=== PATIENT | female | born 1970 | race Caucasian/White ===

== ENCOUNTER → 2016-10-24 | Outpatient (CLI) | payer OTHER ==
--- NOTE | 2016-10-26 09:41 | MM ---
Reason for exam: screening (asymptomatic). Last mammogram was performed 1 year and 2 months ago. History: Patient is postmenopausal and has history of other cancer at age 41. Family history of breast cancer in 2 paternal aunts. Chemotherapy. Physical Findings: A clinical breast exam by your physician is recommended on an annual basis and results should be correlated with mammographic findings. MG Screening Mammo w CAD Bilateral CC and MLO view(s) were taken. Prior study comparison: August 13, 2015, left breast MG 3d work up w/cad LT. August 10, 2015, bilateral MG screening mammo w CAD. There are scattered fibroglandular densities. There is no discrete abnormality. No significant changes when compared with prior studies. ASSESSMENT: Negative, BI-RAD 1 RECOMMENDATION: Routine screening mammogram of both breasts in 1 year.
== END | disposition home or self-care (01) ==
LOC: RADMAMWWP 07:14
PROVIDERS: ATTEND Internal Medicine
DX: Z12.31 Encounter for screening mammogram for malignant neoplasm of breast (principal)

== ENCOUNTER → 2018-04-17 | Outpatient (CLI) | payer OTHER ==
--- NOTE | 2018-04-17 14:05 | MM ---
Reason for exam: screening (asymptomatic). Last mammogram was performed 1 year and 6 months ago. History: Patient is postmenopausal and has history of other cancer at age 41. Family history of breast cancer in 2 paternal aunts. Chemotherapy. Physical Findings: A clinical breast exam by your physician is recommended on an annual basis and results should be correlated with mammographic findings. MG Screening Mammo w CAD Bilateral CC and MLO view(s) were taken. Prior study comparison: October 24, 2016, bilateral MG screening mammo w CAD. August 13, 2015, left breast MG 3d work up w/cad LT. The breast tissue is heterogeneously dense. This may lower the sensitivity of mammography. Finding: There are typically benign round, grouped/clustered calcifications in the anterior position of the right breast. There is no discrete abnormality. ASSESSMENT: Benign, BI-RAD 2 RECOMMENDATION: Routine screening mammogram of both breasts in 1 year.
== END | disposition home or self-care (01) ==
LOC: RADMAMWWP 06:58
PROVIDERS: ATTEND Obstetrics & Gynecology
DX: Z12.31 Encounter for screening mammogram for malignant neoplasm of breast (principal)
CPT/HCPCS: 77067

== ENCOUNTER → 2018-09-28 | Outpatient (CLI) | payer OTHER ==
--- NOTE | 2018-10-01 11:46 | BD ---
EXAMINATION TYPE: Axial Bone Density DATE OF EXAM: 09/28/2018 COMPARISON: DEXA bone scan 2014 CLINICAL HISTORY: Disorder of bone density per order. Height: 71 Weight: 244.0 FRAX RISK QUESTIONS: Alcohol (3 or more units per day): no Family History (Parent hip fracture): no Glucocorticoids (More than 3mos): no (Ex: prednisone, prednisolone, methylprednisolone, dexamethasone, and hydrocortisone). History of Fracture in Adulthood: no Secondary Osteoporosis: 1. Type 1 Diabetes: no 2. Hyperthyroidism: no 3. Menopause before 45: yes 4. Malnutrition: no 5. Chronic liver disease: no Rheumatoid Arthritis: no Current Tobacco Use: no RISK FACTORS HISTORY OF: Family History of Osteoporosis: no Active: yes Diet low in dairy products/other sources of calcium: no Postmenopausal woman: age 41 Lost more than 2 inches in height since high school: no MEDICATIONS: vit d3 Thyroid Medications: synthroid How Lon years Additional History: EXAM MEASUREMENTS: Bone mineral densitometry was performed using the [employer] System. Bone mineral density as measured about the Lumbar spine is: ----- L1-L4(G/cm2): 1.067 T Score Values are as follows: ----- L2: -1.0 ----- L3: -0.9 ----- L4: -0.9 ----- L1-L4: -0.9 Bone mineral density has: increased 0.3 % since study of: 08.10.2015 Bone mineral density about the R hip (g/cm2): 0.932 Bone mineral density about the L hip (g/cm2): 0.999 T Score values are as follows: -----R Neck: -0.8 -----L Neck: -0.3 -----R Total: -0.6 -----L Total: -0.1 Bone mineral density has: decreased -0.3 % since study of: 08.10.2015 IMPRESSION: Normal (Values between +1 and -1 indicate normal bone mass) overall on current study. Bone density fa irly stable from prior. Consider repeating this study in 5 years or sooner if there is some new clin ical indication. NOTE: T-SCORE=SD OF THE YOUNG ADULT MEAN.
== END | disposition home or self-care (01) ==
LOC: RADBDWWP 16:21
PROVIDERS: ATTEND Internal Medicine
DX: M85.9 Disorder of bone density and structure, unspecified (principal)
CPT/HCPCS: 77080

== ENCOUNTER → 2018-11-02 | Day surgery (SDC) | payer OTHER ==
[2018-11-01 08:47] VITALS: BMI 32.1
[~2018-11-02] MED LIST: LACTATED RINGERS 1,000 ML IV SCH; LIDOCAINE 1% 20 ML VIAL (10MG/ML) FOR IV START INTRADERMA ONE; PROPOFOL 10 MG/ML 20 ML VIAL IV ONE
[2018-11-02 10:09] VITALS: RESP 16; TEMP 98.1
--- NOTE | 2018-11-02 11:23 | P.PCN ---
Date of Procedure: 11/02/18 Procedure(s) Performed: BRIEF HISTORY: Patient is a 48-year-old pleasant white female, scheduled for an elective colonoscopy as a part of screening for colorectal neoplasia. PROCEDURE PERFORMED: Colonoscopy. PREOPERATIVE DIAGNOSIS: Screening for colon cancer. IV sedation per Anesthesia. PROCEDURE: After informed consent was obtained, the patient, was brought into the endoscopy unit. IV sedation was administered by Anesthesia under continuous monitoring. Digital rectal examination was normal. Initially the Olympus CF- 160 flexible video colonoscope was then inserted in the rectum, gradually advanced into the cecum without any difficulty. Careful examination was performed as the scope was gradually being withdrawn. Ileocecal valve and the appendiceal orifice were visualized and appeared normal. Prep was excellent. Mucosa of the cecum, ascending colon, transverse colon, descending colon, sigmoid colon, and rectum appeared normal. Retroflexion was performed in the rectum and no lesions were seen. The patient tolerated the procedure well. IMPRESSION: Normal-appearing colon from rectum to cecum with no evidence of colorectal neoplasia. RECOMMENDATIONS: Findings of this examination were discussed with the patient as well as a family. She was advised to have a repeat screening colonoscopy in 10 years.
[2018-11-02 11:37] VITALS: BP 106/66; PULSE 68
== END | disposition home or self-care (01) ==
LOC: ORWHC2ENDO 09:28
PROVIDERS: ATTEND Internal Medicine Gastroenterology
DX: Z12.11 Encounter for screening for malignant neoplasm of colon (principal); E07.9 Disorder of thyroid, unspecified; Z79.890 Hormone replacement therapy; Z85.72 Personal history of non-Hodgkin lymphomas; Z90.710 Acquired absence of both cervix and uterus
CPT/HCPCS: J2704; G0121; 45378

== ENCOUNTER → 2019-12-05 | Outpatient (CLI) | payer OTHER ==
--- NOTE | 2019-12-06 14:14 | MM ---
Reason for exam: screening (asymptomatic). Last mammogram was performed 1 year and 8 months ago. History: Patient is postmenopausal and has history of other cancer at age 41. Family history of breast cancer in 2 paternal aunts. Chemotherapy. Physical Findings: A clinical breast exam by your physician is recommended on an annual basis and results should be correlated with mammographic findings. MG Screening Mammo w CAD Bilateral CC and MLO view(s) were taken. XCCM view(s) were taken of the left breast. Prior study comparison: April 17, 2018, bilateral MG screening mammo w CAD. October 24, 2016, bilateral MG screening mammo w CAD. The breast tissue is heterogeneously dense. This may lower the sensitivity of mammography. There is a stable right lateral round asymmetry. Benign appearing bilateral calcifications. No suspicious abnormality. ASSESSMENT: Benign, BI-RAD 2 RECOMMENDATION: Routine screening mammogram of both breasts in 1 year.
== END | disposition home or self-care (01) ==
LOC: RADMAMWWP 08:02
PROVIDERS: ATTEND Internal Medicine
DX: Z12.31 Encounter for screening mammogram for malignant neoplasm of breast (principal)
CPT/HCPCS: 77067

== ENCOUNTER → 2021-12-15 | Outpatient (CLI) | payer OTHER ==
--- NOTE | 2021-12-15 10:41 | MM ---
Reason for exam: additional evaluation requested from prior study. Last mammogram was performed 2 years ago. History: Patient is postmenopausal and has history of other cancer at age 41. Family history of breast cancer in 2 paternal aunts. Chemotherapy. Physical Findings: A clinical breast exam by your physician is recommended on an annual basis and results should be correlated with mammographic findings. MG 3D Diag Mammo W/Cad KB Bilateral CC and MLO view(s) were taken. Prior study comparison: December 05, 2019, bilateral MG screening mammo w CAD. April 17, 2018, bilateral MG screening mammo w CAD. The breast tissue is heterogeneously dense. This may lower the sensitivity of mammography. There are two indeterminate groups of microcalcifications within each breast requiring tissue biopsy. These results were verbally communicated with the patient and result sheet given to the patient on 12/15/21. ASSESSMENT: Suspicious, BI-RAD 4 RECOMMENDATION: Stereotactic core biopsy of both breasts. (right breast x 2, left breast x 2) Manage patient on a clinical basis. Patient request to speak with oncologist SHANTEL Albert before scheduling biopsy/surgical consult. PRELIMINARY REPORT CALLED AND FAXED TO DR. OSBORN ON 12/15/21.
--- NOTE | 2021-12-15 10:43 | USB ---
Reason for exam: clinical finding. History: Patient is postmenopausal and has history of other cancer at age 41. Family history of breast cancer in 2 paternal aunts. Chemotherapy. Physical Findings: A clinical breast exam by your physician is recommended on an annual basis and results should be correlated with mammographic findings. US Breast Axilla LT Left breast axilla ultrasound demonstrates a 1.4 x 0.6 x 0.6cm probable lipoma at the axilla. These results were verbally communicated with the patient and result sheet given to the patient on 12/15/21. ASSESSMENT: Benign, BI-RAD 2 RECOMMENDATION: Stereotactic core biopsy of both breasts. Bilateral calcifications. (right breast x 2, left breast x 2) Manage patient on a clinical basis. Patient request to speak with oncologist SHANTEL Albert before scheduling biopsy/surgical consult. PRELIMINARY REPORT CALLED AND FAXED TO DR. OSBORN ON 12/15/21.
== END | disposition home or self-care (01) ==
LOC: RADMAMWWP 08:49
PROVIDERS: ATTEND Internal Medicine
DX: R92.8 Other abnormal and inconclusive findings on diagnostic imaging of breast (principal); Z78.0 Asymptomatic menopausal state; Z80.3 Family history of malignant neoplasm of breast
CPT/HCPCS: 77062; 77066

== ENCOUNTER → 2021-12-17 | Outpatient (CLI) | payer OTHER ==
--- NOTE | 2021-12-18 12:45 | ECHOF ---
Referral Reason:Z82.49 FAM HX ISCHEMIC HEART DISEASE MEASUREMENTS -------- HEIGHT: 180.3 cm WEIGHT: 108.9 kg BP: 131/79 RVIDd: 2.6 cm (< 3.3) IVSd: 1.1 cm (0.6 - 1.1) LVIDd: 4.3 cm (3.9 - 5.3) LVPWd: 1.0 cm (0.6 - 1.1) IVSs: 1.8 cm LVIDs: 3.0 cm LVPWs: 1.4 cm LA Diam: 3.4 cm (2.7 - 3.8) Ao Diam: 3.2 cm (2.0 - 3.7) AV Cusp: 2.3 cm (1.5 - 2.6) MV EXCURSION: 21.432 mm (> 18.000) MV EF SLOPE: 117 mm/s (70 - 150) EPSS: 0.7 cm MV E Steven: 0.78 m/s MV DecT: 206 ms MV A Steven: 0.70 m/s MV E/A Ratio: 1.11 RAP: 5.00 mmHg RVSP: 25.10 mmHg FINDINGS -------- Sinus rhythm. This was a technically good study. The left ventricular size is normal. Left ventricular wall thickness is normal. Overall left vent ricular systolic function is normal with, an EF between 55 - 60 %. The right ventricle is normal in size. Normal LA size by volume 22+/-6 ml/m2. The right atrium is normal in size. Interatrial and interventricular septum intact. The aortic valve is trileaflet, and appears structurally normal. No aortic stenosis or regurgitation. The mitral valve is normal. Mild tricuspid regurgitation present. Right ventricular systolic pressure is normal at < 35 mmHg. The pulmonic valve is normal. The aortic root size is normal. Normal inferior vena cava with normal inspiratory collapse consistent with estimated right atrial pre ssure of 5 mmHg. There is no pericardial effusion. CONCLUSIONS -------- 1. The left ventricular size is normal. 2. Left ventricular wall thickness is normal. 3. Overall left ventricular systolic function is normal with, an EF between 55 - 60 %. 4. Mild tricuspid regurgitation present. 5. There is no pericardial effusion. [employer]ER: Josefina Whitehead [facility]
== END | disposition home or self-care (01) ==
LOC: RADECHMAIN 13:41
PROVIDERS: ATTEND Internal Medicine
DX: I07.1 Rheumatic tricuspid insufficiency (principal); Z82.49 Family history of ischemic heart disease and other diseases of the circulatory system
CPT/HCPCS: 93306

== ENCOUNTER → 2022-01-07 | Day surgery (SDC) | payer OTHER ==
[2022-01-07 07:31] VITALS: RESP 16
[2022-01-07 10:22] VITALS: BP 106/67; PULSE 65; TEMP 98.1
--- NOTE | 2022-01-07 16:45 | MM ---
EXAMINATION TYPE: MG stereo VAD BX LT DATE OF EXAM: 01/07/2022 COMPARISON: 12/16/2019 2 mm of the CLINICAL HISTORY: Abnormal mammogram bilateral breasts TECHNIQUE: Stereotactic guided core biopsy of left breast. Due to limitation of medication dose of l idocaine, the right breast was not performed at this time. FINDINGS: The procedure of stereotactic guided core biopsy was explained to the patient. Benefits, a lternatives, and risks were discussed. An informed consent was then obtained. Timeout was performed. Mammographic images are reviewed. Inferior approach was selected. The posterior 6:00 posterior positi on calcifications are localized. The skin was cleansed in standard manner right skin and deeper breas t tissue was anesthetized with 1% lidocaine in the standard manner. Calcifications were targeted by r adiology. Procedure was performed by radiology. 6 core samples were obtained. Calcification is within the sample. Clip was placed. Good hemostasis was obtained with direct pressure for some mild bleedin g. A new setup was performed. A lateral approach was performed for the calcifications at the 7:00 middle position. The skin was cleansed in standard manner. Skin was anesthetized with 1% lidocaine and de eper breast tissue was anesthetized with 1% lidocaine with epinephrine in the standard manner. Calcif ications were targeted by radiology. Procedure was performed by radiology. 6 core samples were obtain ed. Calcification is within the sample. Clip was placed. Good hemostasis was obtained with direct pre ssure for moderate bleeding. Pressure was held for appeared to be a forming hematoma. Small amount of hemorrhage appears to remain in this area following good hemostasis. The patient tolerated the procedure well without any immediate complication. The patient was kept in the radiology department for short stay after the procedure. Discharge instructions were discussed w ith the patient. The patient's bleeding was discussed with the patient. Patient has follow-up appoint ment for additional stereotactic core biopsies of the right breast. Specimen: Targeted calcifications are identified in specimen mammogram on both samples. Postprocedure mammogram: #1 Post biopsy mammogram shows the 6:00 top hat clip to appear in satisfactory position relative to t he targeted calcifications on the preprocedure images. #2 Post biopsy mammogram shows the barbell clip to be distal to the calcification on the craniocaudal projection which appears to been aligned on the lateral projection. Some calcifications appear to be resected posterior to the nipple suggesting the biopsy was successful and either hematoma or accordi ng effect migration of the clip may have occurred. IMPRESSION: 1. Successful stereotactic core biopsy left breast, 2 locations. 2. The 7:00 clip likely has migration from the biopsy site.
== END ==
LOC: RADMAMWWP 07:01
PROVIDERS: ATTEND Internal Medicine
DX: R92.8 Other abnormal and inconclusive findings on diagnostic imaging of breast (principal); N60.22 Fibroadenosis of left breast; N60.21 Fibroadenosis of right breast; N62 Hypertrophy of breast
CPT/HCPCS: 19081; 19082; A4648; J2001; 88305

== ENCOUNTER → 2022-01-13 | Day surgery (SDC) | payer OTHER ==
[2022-01-13 10:12] VITALS: RESP 16
[2022-01-13 11:45] VITALS: BP 112/78; PULSE 67; TEMP 98.1
--- NOTE | 2022-01-13 12:00 | MM ---
EXAMINATION TYPE: MG stereo VAD BX RT, MG stereo VAD BX addl RT DATE OF EXAM: 01/13/2022 COMPARISON: Prior diagnostic mammogram 12/15/2021 CLINICAL HISTORY: Abnormal mammogram TECHNIQUE: Stereotactic guided core biopsies of right breast. FINDINGS: The procedure of stereotactic guided core biopsy was explained to the patient. Benefits, alternatives, and risks were discussed. An informed consent was then obtained. The shortest pathway for biopsy was chosen. Skin was prepped and draped. Lidocaine used for local anesthesia. A vacuum assisted biopsy gun was used to obtain multiple core samples at the 10 to 11:00 position of the right breast. Specimen radiograph shows the calcifications be present within the specimen. Radiopaque marker was deployed at the site. Hemostasis was achieved. Patient remained in stable condition. Similar technique attention was then directed to the approximate 4:00 position of the right breast anterior aspect. Using similar technique core specimens were obtained of the breast calcifications and more to anterior aspect. Specimen radiograph shows calcifications to be present. Radiopaque marker was deployed. Postprocedure mammogram shouldn't demonstrates the radiopaque markers to be present within the breasts. Post biopsy changes. The patient tolerated the procedure well without any immediate complication. The patient was kept in the radiology department for short stay after the procedure and then discharged home in stable condition. IMPRESSION: SUCCESSFUL, UNCOMPLICATED STEREOTACTIC GUIDED CORE BIOPSIES OF 2 DISCRETE FOCI OF MICROCALCIFICATIONS IN AREAS OF CONCERN IN THE right BREAST, FULL PATHOLOGY RESULTS TO FOLLOW. These procedures were performed by the undersigned. Pathology Results: Benign A. RIGHT BREAST, SITE A 10:00, STEREOTACTIC CORE BIOPSY: Proliferative fibrocystic changes including sclerosing adenosis with calcifications, columnar cell change/columnar cell hyperplasia, and moderate usual type ductal hyperplasia with papillomatosis. B. RIGHT BREAST, SITE B 4:00, STEREOTACTIC CORE BIOPSY: Proliferative fibrocystic changes including sclerosing adenosis with calcifications, columnar cell change, apocrine metaplasia, and moderate usual type ductal hyperplasia. Recommendation Follow up mammogram of the right breast in 6 months. Note the hyperplasia with papillomatosis may be a marker for increased risk of breast cancer and careful ongoing routine surveillance is advised. [facility]
== END ==
LOC: RADMAMWWP 09:54
PROVIDERS: ATTEND Internal Medicine
DX: R92.8 Other abnormal and inconclusive findings on diagnostic imaging of breast (principal)
CPT/HCPCS: 19081; 19082; A4648; J2001

== ENCOUNTER → 2022-07-18 | Outpatient (CLI) | payer OTHER ==
--- NOTE | 2022-07-18 11:52 | MM ---
Reason for Exam: Follow-up at short interval from prior study. Last screening mammogram was performed 7 month(s) ago. Patient History: Menarche at age 11. First Full-Term at age 20. Left ovary removed at age 41. Right ovary removed at age 41. Postmenopausal. 01/13/2022, Benign Core Biopsy on the right side. 01/13/2022, Benign Core Biopsy on the right side. 01/07/2022, Benign Core Biopsy on the left side. 01/07/2022, Benign Core Biopsy on the left side. Chemotherapy. Paternal aunt had breast cancer. Paternal aunt had breast cancer. Risk Values: Ariela 5 year model risk: 1.5%. NCI Lifetime model risk: 11.1%. Prior Study Comparison: 10/24/2016 Bilateral Screening Mammogram, [facility]. 04/17/2018 Bilateral Screening Mammogram, [facility]. 12/05/2019 Bilateral Screening Mammogram, [facility]. 12/15/2021 Bilateral Diagnostic Mammogram, [facility]. 12/15/2021 Left Diagnostic Ultrasound, [facility]. Tissue Density: There are scattered fibroglandular densities. Findings: Analyzed By CAD. There are 2 biopsy clips demonstrated within each breast. No new suspicious calcifications or masses identified within either breast. Overall Assessment: Benign, BI-RAD 2 Management: Screening Mammogram of both breasts in 1 year. A clinical breast exam by your physician is recommended on an annual basis and results should be correlated with mammographic findings. This exam should not preclude additional follow-up of suspicious palpable abnormalities. Results were given to the patient verbally at the time of exam. Electronically signed and approved by: Shiv Gonzalez D.O.
== END | disposition home or self-care (01) ==
LOC: RADMAMWWP 10:52
PROVIDERS: ATTEND Internal Medicine
DX: R92.8 Other abnormal and inconclusive findings on diagnostic imaging of breast (principal); Z78.0 Asymptomatic menopausal state; Z80.3 Family history of malignant neoplasm of breast
CPT/HCPCS: 77062; 77066

== ENCOUNTER → 2022-10-04 | Outpatient (CLI) | payer OTHER ==
[2022-10-04 14:29] LABS: Basophils # (A) 0.04 X 10*3/uL (0.00-0.10); Basophils % (A) 0.7 %; Eosinophils # (A) 0.14 X 10*3/uL (0.04-0.35); Eosinophils % (A) 2.4 %; HCT 41.4 % (37.2-46.3); HGB 13.6 g/dL (12.0-15.0); Immature Grans, Automated 0.3 %; Lymphocytes # (A) 1.51 X 10*3/uL (0.90-5.00); Lymphocytes % (A) 25.8 %; MCH 32.6 pg (27.0-32.0); MCHC 32.9 g/dL (32.0-37.0); MCV 99.3 fL (80.0-97.0); Mean Platelet Volume 10.1 fL (9.5-12.2); Monocytes # (A) 0.37 X 10*3/uL (0.20-1.00); Monocytes % (A) 6.3 %; NRBC Per 100 WBC 0 /100 WBCS (0.0-0.0); Neutrophils # (A) 3.77 X 10*3/uL (1.80-7.70); Neutrophils % (A) 64.5 %; Platelet Count 231 X 10*3/uL (140-440); RBC 4.17 X 10*6/uL (4.10-5.20); WBC 5.85 X 10*3/uL (4.50-10.00)
[2022-10-04 14:54] LABS: % Iron Saturation 27.93 (12.00-45.00); ALT 34 U/L (8-44); AST 21 U/L (13-35); African American GFR (CKD) 90.3 (60.0-200.0); Albumin 4.9 g/dL (3.8-4.9); Albumin/Globulin Ratio 2.15 (1.60-3.17); Alkaline Phosphatase 122 U/L (41-126); BUN/Creat Ratio 16.51 Ratio (12.00-20.00); Calcium 9.7 mg/dL (8.7-10.3); Carbon Dioxide 25.9 mmol/L (20.0-27.5); Chloride 105 mmol/L (96-109); Globulin 2.3 g/dL (1.6-3.3); Glucose 87 mg/dL (70-110); Iron 83 ug/dL (50-170); LDH 193 U/L (120-246); LDL Cholesterol,Calculated 69.6 mg/dL (0.0-131.0); Non-African American GFR(CKD) 77.9 (60.0-200.0); Potassium 4.3 mmol/L (3.5-5.5); Sodium 141 mmol/L (135-145); Total Iron Binding Capacity 298 ug/dL (228-460); Total Protein 7.1 g/dL (6.2-8.2); VLDL Calculation 14.86 mg/dL (5.00-40.00)
== END | disposition home or self-care (01) ==
LOC: LABWHC1 09:05
PROVIDERS: ATTEND Internal Medicine
DX: C83.73 Burkitt lymphoma, intra-abdominal lymph nodes (principal); E03.9 Hypothyroidism, unspecified; E78.2 Mixed hyperlipidemia
CPT/HCPCS: 36415; 80053; 80061; 82728; 83036; 83540; 83550; 83615; 84439; 84443; 85025

== ENCOUNTER → 2023-09-11 | Outpatient (CLI) | payer OTHER ==
--- NOTE | 2023-09-12 11:44 | MM ---
Reason for Exam: Screening (asymptomatic). Last mammogram was performed 1 year(s) and 2 month(s) ago. Patient History: Menarche at age 11. First Full-Term at age 20. Left ovary removed at age 41. Right ovary removed at age 41. Postmenopausal. Other cancer, age 41. 01/13/2022, Benign Core Biopsy on the right side. 01/13/2022, Benign Core Biopsy on the right side. 01/07/2022, Benign Core Biopsy on the left side. 01/07/2022, Benign Core Biopsy on the left side. Chemotherapy. Paternal aunt had breast cancer. Paternal aunt had breast cancer. Risk Values: Ariela 5 year model risk: 1.6%. NCI Lifetime model risk: 10.9%. Prior Study Comparison: 12/05/2019 Bilateral Screening Mammogram, [facility]. 12/15/2021 Bilateral Diagnostic Mammogram, [facility]. 07/18/2022 Bilateral MG 3D diag mammo w/cad KB, [facility]. Tissue Density: The breast tissue is heterogeneously dense. This may lower the sensitivity of mammography. Findings: Analyzed By CAD. There is no suspicious group of microcalcifications or new suspicious mass in either breast. Overall Assessment: Benign, BI-RAD 2 Management: Screening Mammogram of both breasts in 1 year. . Patient should continue monthly self-breast exams. A clinical breast exam by your physician is recommended on an annual basis. This exam should not preclude additional follow-up of suspicious palpable abnormalities. Note on Ariela scores and lifetime risk: 1. A Ariela score greater than 3% is considered moderate risk. If this is the case, consider specialist referral to assess eligibility for a risk reducing agent. 2. If overall lifetime risk for the development of breast cancer is 20% or higher, the patient may qualify for future screening with alternating mammogram and breast MRI. Electronically signed and approved by: Doug Francis M.D. Radiologis
== END | disposition home or self-care (01) ==
LOC: RADMAMWWP 07:58
PROVIDERS: ATTEND Internal Medicine
DX: Z12.31 Encounter for screening mammogram for malignant neoplasm of breast (principal); Z80.3 Family history of malignant neoplasm of breast; Z78.0 Asymptomatic menopausal state
CPT/HCPCS: 77063; 77067

== ENCOUNTER → 2023-10-31 | Outpatient (CLI) | payer OTHER ==
--- NOTE | 2023-10-31 14:28 | BD ---
EXAMINATION TYPE: Axial Bone Density DATE OF EXAM: 10/31/2023 CLINICAL HISTORY: 53 years old Female. ICD-10 CODE: M85.851 OTH DISRD OF BONE DENSITY AND STRUCTURE, R Height: 70 Weight: 206 FRAX RISK QUESTIONS: History of Fracture in Adulthood: no Secondary Osteoporosis: yes 3. Menopause before 45: yes MEDICATIONS: Thyroid Medications: yes Which medication: Levothyroxine How Lon+ years EXAM MEASUREMENTS: Bone mineral densitometry was performed using the [employer] System. Bone mineral density as measured about the Lumbar spine is: ----- L1-L4(G/cm2): 1.063 T Score Values are as follows: ----- L1: -1.9 ----- L2: -0.9 ----- L3: -0.7 ----- L4: -0.8 ----- L1-L4: -1.0 Z Score Values are as follows: ----- L1: -2.0 ----- L2: -1.0 ----- L3: -0.8 ----- L4: -0.9 ----- L1-L4: -1.1 Bone mineral density has: Increased 2.6% since study of: 08/10/2015 Bone mineral density about the R hip (g/cm2): 0.825 Bone mineral density about the L hip (g/cm2): 0.937 T Score values are as follows: -----R Neck: -1.8 -----L Neck: -0.7 -----R Total: -1.4 -----L Total: -0.6 Z Score values are as follows: -----R Neck: -1.4 -----L Neck: -0.3 -----R Total: -1.5 -----L Total: -0.6 Bone mineral density has: Decreased -8.9% since study of: 08/10/2015 FRAX%s: The graph provided illustrates a 7.4% chance for a major osteoporotic fx and a 0.8% chance fo r the hips probability for fx in 10 years time. IMPRESSION: Osteopenia (T Score between -2.5 and -1). There is slightly increased risk of fracture and the patient may be considered for treatment. Re-Screen 2-5 years. NOTE: T-SCORE=SD OF THE YOUNG ADULT MEAN.
== END | disposition home or self-care (01) ==
LOC: RADBDWWP 13:08
PROVIDERS: ATTEND Internal Medicine
DX: M85.851 Other specified disorders of bone density and structure, right thigh (principal); M85.852 Other specified disorders of bone density and structure, left thigh
CPT/HCPCS: 77080

== ENCOUNTER → 2024-10-31 | Outpatient (CLI) | payer BC ==
--- NOTE | 2024-10-31 11:58 | MM ---
Reason for Exam: Screening (asymptomatic). Last mammogram was performed 1 year(s) and 1 month(s) ago. Patient History: Menarche at age 11. First Full-Term at age 20. Left ovary removed at age 41. Right ovary removed at age 41. Postmenopausal. Other cancer, age 41. 01/13/2022, Benign Core Biopsy on the right side. 01/13/2022, Benign Core Biopsy on the right side. 01/07/2022, Benign Core Biopsy on the left side. 01/07/2022, Benign Core Biopsy on the left side. Chemotherapy. Paternal aunt had breast cancer, age 50. Paternal aunt had breast cancer. Risk Values: Ariela 5 year model risk: 1.7%. NCI Lifetime model risk: 10.7%. Prior Study Comparison: 12/15/2021 Bilateral Diagnostic Mammogram, [facility]. 07/18/2022 Bilateral MG 3D diag mammo w/cad KB, [facility]. 09/11/2023 Bilateral MG 3D screening mammo w/cad, [facility]. Tissue Density: There are scattered areas of fibroglandular density. Findings: Analyzed By CAD. 2 microclips within either breast from prior biopsies. A few scattered grouped calcifications are unchanged. Small areas of asymmetric density are also unchanged. There is no suspicious group of microcalcifications or new suspicious mass in either breast. Overall Assessment: Benign, BI-RAD 2 Management: Screening Mammogram of both breasts in 1 year. . Patient should continue monthly self-breast exams. A clinical breast exam by your physician is recommended on an annual basis. This exam should not preclude additional follow-up of suspicious palpable abnormalities. Note on Ariela scores and lifetime risk: 1. A Ariela score greater than 3% is considered moderate risk. If this is the case, consider specialist referral to assess eligibility for a risk reducing agent. 2. If overall lifetime risk for the development of breast cancer is 20% or higher, the patient may qualify for future screening with alternating mammogram and breast MRI. [facility], , 10/31/2024 11:55 AM. Electronically signed and approved by: Bryant Scott M.D. Radiologist
== END | disposition home or self-care (01) ==
LOC: RADMAMWWP 09:02
PROVIDERS: ATTEND Internal Medicine
DX: Z12.31 Encounter for screening mammogram for malignant neoplasm of breast (principal); R92.323 Mammographic fibroglandular density, bilateral breasts; Z78.0 Asymptomatic menopausal state; Z80.3 Family history of malignant neoplasm of breast
CPT/HCPCS: 77063; 77067